=== PATIENT | female | born 1985 | race Caucasian/White ===

== ENCOUNTER 2018-08-09 20:15 | Inpatient (IN) | payer OTHER ==
[~2018-08-09] VITALS: Ht 154.9 cm; Wt 89.0 kg
[2018-08-09 21:36] LABS: BASOPHIL % 0.1 % (0-2); PLATELET COUNT 377 x10^3mcL (130-400)
[2018-08-09 21:55] LABS: RED CELL DISTRIBUTION WIDTH 18.4 % (11.5-14.5)
[2018-08-09 21:56] LABS: FREE T4 1.31 ng/dL (0.76-1.46); FREE THYROXINE INDEX 3.4 ug/dL (1.4-4.5); T4(THYROXINE) 9.8 ug/dL (4.7-13.3)
[2018-08-09 22:06] LABS: CALCIUM 8.4 mg/dL (8.5-10.1); CARBON DIOXIDE 17.3 mmol/L (21-32); CHLORIDE SERUM 103 mmol/L (98-107); CREATININE SERUM 0.7 mg/dL (0.6-1.0); GFR1 > 60 mL/min; GLUCOSE SERUM 114 mg/dL (74-106); POTASSIUM SERUM 3.6 mmol/L (3.5-5.1); SODIUM SERUM 133 mmol/L (136-145)
[2018-08-09 22:10] LABS: T3 TOTAL 0.53 ng/mL
[2018-08-09 22:13] LABS: ALBUMIN 2.4 g/dL (3.4-5.0); ALKALINE PHOSPHATASE 117 U/L (46-116); ALT/SGPT 24 U/L (14-59); AST/SGOT 34 U/L (15-37); BILIRUBIN TOTAL 0.3 mg/dL (0.20-1.00); TOTAL PROTEIN, SERUM 8.9 g/dL (6.4-8.2)
[2018-08-09 22:15] LABS: CK-MB 0.5 ng/mL (0-3.6)
[2018-08-09 22:22] LABS: ERYTHROCYTE SED RATE 112 mm/hr (0-20)
[2018-08-09 22:33] LABS: C REACTIVE PROTEIN 13.9 mg/dL (<=0.9)
[2018-08-09 23:03] LABS: UA SPECIFIC GRAVITY >=1.030 (1.005-1.035); microscopic required? YES; urine erythrocyte 1+ (NEGATIVE)
[2018-08-09] MEDS ORDERED: METHOTREXATE2.5 M2 PO ×2 (23:13→23:16)
[2018-08-09] MEDS ORDERED: PREDNISONE2.5 MG PO (23:14)
[2018-08-09] MEDS ORDERED: IBUPROFEN400 MG PO (23:18)
[2018-08-09] MEDS ORDERED: PREDNISONE5 MG PO (23:18)
[2018-08-09] MEDS ORDERED: TYLENOL WITH CO1 TA2 PO (23:19)
[2018-08-09] MEDS ORDERED: TIZANIDINE HCL4 MG PO (23:20)
[2018-08-09] MEDS ORDERED: CITALOPRAM HYDR10 M1 PO (23:22)
[2018-08-10 01:04] VITALS: BP 145/91
[2018-08-10 01:33] LABS: MAGNESIUM 1.7 mg/dL (1.8-2.4); PHOSPHOROUS 3.8 mg/dL (2.5-4.9)
[2018-08-10 01:36] LABS: CHOLESTEROL/HDL RATIO 3.1
[2018-08-10 01:55] LABS: AMPHETAMINE QUAL UR NONE DETECTED (See below)
[2018-08-10 02:40] VITALS: BP 126/79
[2018-08-10 03:02] VITALS: BP 126/79
[2018-08-10 06:21] LABS: CALCIUM 7.5 mg/dL (8.5-10.1); CARBON DIOXIDE 21.3 mmol/L (21-32); CHLORIDE SERUM 104 mmol/L (98-107); CREATININE SERUM 0.6 mg/dL (0.6-1.0); GFR1 > 60 mL/min; GLUCOSE SERUM 113 mg/dL (74-106); MAGNESIUM 1.6 mg/dL (1.8-2.4); PHOSPHOROUS 2.7 mg/dL (2.5-4.9); POTASSIUM SERUM 3.6 mmol/L (3.5-5.1); SODIUM SERUM 135 mmol/L (136-145)
[2018-08-10 06:23] LABS: BASOPHIL % 0.2 % (0-2); PLATELET COUNT 383 x10^3mcL (130-400)
[2018-08-10 06:27] LABS: RED CELL DISTRIBUTION WIDTH 18.9 % (11.5-14.5)
[2018-08-10 08:57] VITALS: BP 114/84
[2018-08-10 11:56] VITALS: BP 111/68
[2018-08-10 15:19] VITALS: BP 121/64
[2018-08-11 05:28] LABS: BASOPHIL % 0 % (0-2); PLATELET COUNT 351 x10^3mcL (130-400); RED CELL DISTRIBUTION WIDTH 18.9 % (11.5-14.5)
[2018-08-11 05:31] LABS: CALCIUM 7.8 mg/dL (8.5-10.1); CHLORIDE SERUM 105 mmol/L (98-107); CREATININE SERUM 0.7 mg/dL (0.6-1.0); GFR1 > 60 mL/min; GLUCOSE SERUM 111 mg/dL (74-106); MAGNESIUM 1.9 mg/dL (1.8-2.4); PHOSPHOROUS 2.3 mg/dL (2.5-4.9); SODIUM SERUM 135 mmol/L (136-145)
[2018-08-11 08:12] VITALS: BP 126/90
[2018-08-11] MEDS ORDERED: ALPRAZOLAM0.25 MG PO (08:39)
[2018-08-11 11:58] VITALS: BP 147/75
[2018-08-11 15:27] VITALS: BP 113/70
[2018-08-11 20:04] VITALS: BP 139/79
[2018-08-12] VITALS (7 sets, daily range): BP systolic 108–137; BP diastolic 68–92
[2018-08-12 05:35] LABS: BASOPHIL % 0.1 % (0-2); PLATELET COUNT 313 x10^3mcL (130-400)
[2018-08-12 05:37] LABS: CARBON DIOXIDE 23.5 mmol/L (21-32); CHLORIDE SERUM 105 mmol/L (98-107); CREATININE SERUM 0.6 mg/dL (0.6-1.0); GFR1 > 60 mL/min; GLUCOSE SERUM 125 mg/dL (74-106); POTASSIUM SERUM 3.7 mmol/L (3.5-5.1); SODIUM SERUM 135 mmol/L (136-145)
[2018-08-12 05:46] LABS: RED CELL DISTRIBUTION WIDTH 18.7 % (11.5-14.5)
[2018-08-12 06:15] LABS: rbc morphology (normal/abnorm) ABNORMAL (NORMAL)
[2018-08-12 06:16] LABS: burr cell (echinocyte) 1+
[2018-08-12 08:09] LABS: IRON 12 ug/dL (50-170); TOTAL IRON BINDING CAPACITY 155 ug/dL (250-450)
[2018-08-12 10:32] LABS: RED BLOOD CELLS 2.6 M/mm3 (4.10-5.10)
[2018-08-13 05:00] VITALS: BP 133/90
[2018-08-13 06:50] LABS: CALCIUM 8.1 mg/dL (8.5-10.1); CARBON DIOXIDE 22.8 mmol/L (21-32); CHLORIDE SERUM 104 mmol/L (98-107); CREATININE SERUM 0.6 mg/dL (0.6-1.0); GFR1 > 60 mL/min; GLUCOSE SERUM 106 mg/dL (74-106); MAGNESIUM 1.8 mg/dL (1.8-2.4); PHOSPHOROUS 2.5 mg/dL (2.5-4.9); PLATELET COUNT 320 x10^3mcL (130-400); POTASSIUM SERUM 3.5 mmol/L (3.5-5.1); SODIUM SERUM 132 mmol/L (136-145)
[2018-08-13 07:41] VITALS: BP 135/94
[2018-08-13 08:56] LABS: BASOPHIL % 0 % (0-2); RED CELL DISTRIBUTION WIDTH 19.2 % (11.5-14.5)
[2018-08-13 09:13] LABS: RHEUMATOID ARTHRITIS FACTOR 469.7 IU/mL (0.0-13.9)
[2018-08-13 12:13] VITALS: BP 130/82
[2018-08-13 17:59] VITALS: BP 147/93
[2018-08-13 19:34] VITALS: BP 138/93
[2018-08-14 03:15] VITALS: BP 138/93
[2018-08-14 04:46] VITALS: BP 148/97
[2018-08-14 06:52] LABS: BASOPHIL % 0.6 % (0-2); PLATELET COUNT 366 x10^3mcL (130-400)
[2018-08-14 07:19] LABS: CALCIUM 8.3 mg/dL (8.5-10.1); CARBON DIOXIDE 21.9 mmol/L (21-32); CHLORIDE SERUM 106 mmol/L (98-107); CREATININE SERUM 0.6 mg/dL (0.6-1.0); GFR1 > 60 mL/min; GLUCOSE SERUM 92 mg/dL (74-106); MAGNESIUM 1.5 mg/dL (1.8-2.4); PHOSPHOROUS 3.4 mg/dL (2.5-4.9); POTASSIUM SERUM 3.7 mmol/L (3.5-5.1); SODIUM SERUM 138 mmol/L (136-145)
[2018-08-14 09:11] LABS: RED CELL DISTRIBUTION WIDTH 18.9 % (11.5-14.5)
[2018-08-14 09:29] VITALS: BP 125/86
[2018-08-14 12:34] VITALS: BP 125/86
== END 2018-08-14 14:17 | disposition home or self-care (01) | DRG 314 ==
LOC: ED 20:15 → IC 08-10 00:19 → DU 08-10 00:19 → IC 08-10 00:54 → DU 08-12 08:31 → IC 08-12 08:44 → DU 08-12 08:52
PROVIDERS: Specialist; ADMIT Internal Medicine
DX: I31.3 Pericardial effusion (noninflammatory) (principal); E43 Unspecified severe protein-calorie malnutrition; N17.0 Acute kidney failure with tubular necrosis; J96.01 Acute respiratory failure with hypoxia; E87.1 Hypo-osmolality and hyponatremia; N39.0 Urinary tract infection, site not specified; T70.29XA Other effects of high altitude, initial encounter; J11.1 Influenza due to unidentified influenza virus with other respiratory manifestations; E83.42 Hypomagnesemia; M06.9 Rheumatoid arthritis, unspecified; D50.9 Iron deficiency anemia, unspecified; Z68.37 Body mass index [BMI] 37.0-37.9, adult; Z79.52 Long term (current) use of systemic steroids; W94.0XXA Exposure to prolonged high air pressure, initial encounter
CPT/HCPCS: 36600; 83880; 84439; 86431; 87804; 90658; 90732; 94150; 97110-GP; 97116-GP; J0456; J0696; J1450; J2060; J2270; J2405; J2543; J7030; J7040; J7512; J7620; Q0092; Q9967